=== PATIENT | male | born 1990 | race American Indian/Alaskan Native ===

== ENCOUNTER 2017-11-02 22:39 | Emergency (ER) | payer SELFPAY ==
[2017-11-03 00:43] VITALS: BP 151/86
--- NOTE | 2017-11-03 02:29 | Emergency Department Report ---
Suture/Staple Removal - [facility] Chief Complaint: Laceration/Recheck/Suture Stated Complaint: SUTURE REMOVAL Time Seen by Provider: 11/03/17 02:25 Wound Location: patient presents for staple removal of occipital layo placed to days ago ED Review of Systems ROS: Stated complaint: SUTURE REMOVAL Other details as noted in HPI Constitutional: denies: chills, fever Eyes: denies: eye pain, eye discharge, vision change ENT: denies: ear pain, throat pain Respiratory: denies: cough, shortness of breath, wheezing Cardiovascular: denies: chest pain, palpitations Endocrine: no symptoms reported Gastrointestinal: denies: abdominal pain, nausea, diarrhea Genitourinary: denies: urgency, dysuria Musculoskeletal: denies: back pain, joint swelling, arthralgia Skin: other. denies: rash, lesions Neurological: denies: headache, weakness, paresthesias Psychiatric: denies: anxiety, depression Hematological/Lymphatic: denies: easy bleeding, easy bruising ED Past Medical Hx - Past Medical History Previous Medical History?: Yes Hx Asthma: Yes - Surgical History Past Surgical History?: No - Social History Smoking Status: Never Smoker Substance Use Type: Alcohol, Marijuana Suture Removal Exam - Exam General: Vital signs noted. No distress. Alert and acting appropriately. Wound edges well approximated and no drainage no erythema Wound: No Pathologic Erythema, No Tenderness, No Drainage, No Pus, No Wound Dehiscence Other Systems: All other systems reviewed and are unremarkable. ED Course Vital Signs 11/03/17 00:18 Temperature 98.1 F Pulse Rate 58 L Respiratory 16 Rate Blood Pressure 151/86 O2 Sat by Pulse 100 Oximetry ED Recheck MDM - Differential Diagnosis Wound Recheck, Suture/Staple Removal - Medical Decision Making Stable stents removed intact no signs of infection no drainage no bleeding patient tolerated same with minimal distress DC'd home in stable condition at this time patient will follow with PCP as needed Critical care attestation.: If time is entered above; I have spent that time in minutes in the direct care of this critically ill patient, excluding procedure time. ED Disposition Clinical Impression: Removal of staple Disposition: DC-01 TO HOME OR SELFCARE Is pt being admited?: No Does the pt Need Aspirin: No Condition: Good Instructions: Staple Care (ED) Referrals: PRIMARY CARE, [Primary Care Provider] - 3-5 Days Forms: Work/School Release Form(ED) Time of Disposition: 02:28
== END 2017-11-03 02:30 | disposition home or self-care (01) ==
LOC: ED 22:39
DX: Z48.01 Encounter for change or removal of surgical wound dressing (principal); T14.8XXD Other injury of unspecified body region, subsequent encounter